=== PATIENT | female | born 1965 | race African-American/Black ===

== ENCOUNTER 2021-03-01 10:29 | Emergency (ER) | payer MEDICAID, MEDICARE | END 2021-03-01 11:41 | disposition home or self-care (01) | LOC: ERS 10:29 | DX: M54.9 Dorsalgia, unspecified (principal); G89.29 Other chronic pain; F17.210 Nicotine dependence, cigarettes, uncomplicated; Z79.899 Other long term (current) drug therapy | CPT/HCPCS: 99283 ==